=== PATIENT | male | born 1980 | race Caucasian/White ===

== ENCOUNTER 2021-03-19 23:49 | Emergency (ER) | payer OTHER ==
[~2021-03-19] VITALS: Ht 170.2 cm; Wt 70.0 kg
[2021-03-20 00:01] VITALS: BP 130/87
--- NOTE | 2021-03-20 00:04 | PHYS DOC ---
General Adult EDM: Chief Complaint: LACERATION/AVULSION HPI: HPI: Patient is a 40 year old male who presents to the ED today complaining of a laceration to the left thumb. Patient states he was cutting tomatoes using a knife and accidentally cut himself. He is right-handed. Patient smells of alcohol and appears very intoxicated, he admitted to drinking Review of Systems: Review of Systems: Constitutional: Denies fever or chills. [] Musculoskeletal: Denies back pain or joint pain. [] Integument: Reports left thumb laceration Neurologic: Denies headache, focal weakness or sensory changes. [] Psychiatric: Denies depression or anxiety. [] Heart Score: C/O Chest Pain: N/A Risk Factors: Risk Factors: DM, Current or recent (<one month) smoker, HTN, HLP, family history of CAD, obesity. Risk Scores: Score 0 - 3: 2.5% MACE over next 6 weeks - Discharge Home Score 4 - 6: 20.3% MACE over next 6 weeks - Admit for Clinical Observation Score 7 - 10: 72.7% MACE over next 6 weeks - Early Invasive Strategies Physical Exam: PE: Constitutional: Well developed, well nourished, no acute distress, non-toxic appearance. [] Skin: Left medial thigh distal and along the beginning of the nailbed with a superficial 0.3 cm laceration that is not bleeding, there is no tendon involvement. Full range of motion to the left thumb. Adequate radial sensation to the left thumb. Cap refill less than 2 seconds in left thumb. +2 left radial pulse. Back: No tenderness, no CVA tenderness. [] Extremities: No tenderness, no cyanosis, no clubbing, ROM intact, no edema. [] Neurologic: Alert and oriented X 3, normal motor function, normal sensory function, no focal deficits noted. [] Psychologic: Affect normal, judgement normal, mood normal. [] EKG: EKG: [] Radiology/Procedures: Radiology/Procedures: [] Course & Med Decision Making: Course & Med Decision Making Pertinent Labs and Imaging studies reviewed. (See chart for details) This is a 40-year-old male patient presenting to the ED today with a superficial laceration to the left thumb. He states his shots are up-to-date including tetanus because he is in the . He is very intoxicated right now. Laceration was cleaned and closed with Dermabond. Discharge to home. Wound care instructions and return precautions provided. Nabila Disclaimer: Nabila Disclaimer: This electronic medical record was generated, in whole or in part, using a voice recognition dictation system. Departure Departure Impression: Primary Impression: Laceration of left thumb Qualified Codes: S61.012A - Laceration without foreign body of left thumb without damage to nail, initial encounter Disposition: HOME / SELF CARE / HOMELESS Condition: STABLE Patient Instructions: Fingertip Laceration Additional Instructions: You have a laceration to the left thumb. You can shower and wash your hands. Apply Neosporin to the laceration site twice a day for 7 days. Monitor the area for any signs of infection including but not limited to increased redness, warmth, yellow drainage from the area or any other concerning symptoms or return to the ED if they occur. This is a superficial laceration that does not need stitches DARRELL CARTWRIGHT APRN Mar 20, 2021 00:04
== END 2021-03-20 00:24 | disposition home or self-care (01) ==
LOC: ER 23:49
DX: S61.012A Laceration without foreign body of left thumb without damage to nail, initial encounter (principal); W26.0XXA Contact with knife, initial encounter; Y93.89 Activity, other specified; Y92.89 Other specified places as the place of occurrence of the external cause; Y99.8 Other external cause status
CPT/HCPCS: 12001; 99282